=== PATIENT | female | born 1980 | race Caucasian/White ===

== ENCOUNTER 2016-11-21 09:02 | Outpatient (CLI) | payer BC ==
--- NOTE | 2016-11-21 11:40 | Diagnostic Imaging Report ---
Indication: DYSPHAGIA Technique: Patient ingested effervescent granules, oral thickened and liquid barium, both supine and upright, and rapid sequence spot images, static spot images, and overhead images were obtained Total fluoroscopy time 0.8 minutes. Total dose area product 175 dGycm2 Comparison: None Findings: Other rapid sequence images, esophageal motility appears unremarkable. However, the static images demonstrate some tertiary contractions, suggesting a component of dysmotility. No strictures or filling defects. On the supine images, there is suggestion of a minimal sliding-type hiatal hernia. No gastroesophageal reflux was observed fluoroscopically. A single images of the stomach is grossly unremarkable. Impression: Minimal esophageal dysmotility. Equivocal small sliding-type hiatal hernia Otherwise unremarkable exam
== END 2016-11-21 11:02 | disposition home or self-care (01) ==
LOC: RAD 09:02
DX: K22.4 Dyskinesia of esophagus (principal); K44.9 Diaphragmatic hernia without obstruction or gangrene
CPT/HCPCS: 74220